=== PATIENT | female | born 1970 | race Caucasian/White ===

== ENCOUNTER 2020-10-19 11:10 | Emergency (ER) | payer OTHER ==
[~2020-10-19] VITALS: Ht 175.3 cm; Wt 89.4 kg
== END 2020-10-19 14:12 | disposition home or self-care (01) ==
LOC: ED 11:10
DX: S70.02XA Contusion of left hip, initial encounter (principal); R20.2 Paresthesia of skin; V49.40XA Driver injured in collision with unspecified motor vehicles in traffic accident, initial encounter; Z88.8 Allergy status to other drugs, medicaments and biological substances; Z88.5 Allergy status to narcotic agent
CPT/HCPCS: 70450; 72125; 73502; 99284-25

== ENCOUNTER 2022-02-04 06:34 | Emergency (ER) | payer OTHER ==
[~2022-02-04] VITALS: Ht 175.3 cm; Wt 70.3 kg
[2022-02-04] MEDS ORDERED: LIOTHYRONINE SO5 MCG PO (06:50)
[2022-02-04] MEDS ORDERED: ZYRTEC10 MG PO (06:51)
[2022-02-04] MEDS ORDERED: LEVOTHYROXINE125 MCG PO (06:51)
[2022-02-04] MEDS ORDERED: CIPRO500 MG PO (07:10)
== END 2022-02-04 07:22 | disposition home or self-care (01) ==
LOC: ED 06:34
DX: N39.0 Urinary tract infection, site not specified (principal); J45.909 Unspecified asthma, uncomplicated; E03.9 Hypothyroidism, unspecified; Z88.8 Allergy status to other drugs, medicaments and biological substances; Z88.5 Allergy status to narcotic agent; Z88.6 Allergy status to analgesic agent; Z79.899 Other long term (current) drug therapy
CPT/HCPCS: 81001; 87088; 99283